=== PATIENT | male | born 1960 | race Caucasian/White ===

== ENCOUNTER 2020-04-08 09:59 | Outpatient (CLI) | payer SELFPAY ==
[~2020-04-08] VITALS: Ht 180.3 cm; Wt 83.9 kg
[2020-04-08 09:55] VITALS: BP 145/66
[2020-04-08] MEDS ORDERED: BAMLANIVIMAB 700 MG in NS 200 ML IV ONE (10:30)
[2020-04-08] MEDS ORDERED: diphenhydrAMINE 50 MG/ML INJ (BENADRYL) IV PRN (10:30)
[2020-04-08] MEDS ORDERED: EPINEPHrine INJECTION 1 MG/ML AMP IM PRN (10:30)
[2020-04-08 11:31] VITALS: BP 120/66
== END 2020-04-08 12:30 | disposition home or self-care (01) ==
LOC: INFUSION 09:59
PROVIDERS: ATTEND Internal Medicine
DX: U07.1 COVID-19 (principal)